=== PATIENT | male | born 2000 | race African-American/Black ===

== ENCOUNTER 2020-05-07 19:11 | Emergency (ER) | payer MEDICAID ==
[~2020-05-07] VITALS: Ht 177.8 cm; Wt 59.0 kg
[2020-05-07 20:45] LABS: BASOPHILS % 0.9 % (0.0-2.0); EOSINOPHILS % 1.4 % (0.0-5.0); HEMATOCRIT. 44.7 % (42.0-52.0); HEMOGLOBIN. 14.8 g/dL (14.0-18.0); LYMPHOCYTES % 18.3 % (20.0-50.0); MEAN CORPUSCULAR HEMOGLOBIN 26.6 pg (28.0-32.0); MEAN CORPUSCULAR VOLUME 80.5 fL (80.0-94.0); MEAN PLATELET VOLUME 7.3 fl (7.4-10.4); MONOCYTES % 9.3 % (2.0-8.0); NEUTROPHILS % 70.1 % (40.0-76.0); PLATELET 208 x1000/uL (130-400); RED BLOOD CELL COUNT 5.55 mill/uL (4.7-6.1); RED CELL DISTRIBUTION WIDTH 13.5 % (11.6-14.6)
[2020-05-07 20:49] LABS: CHLORIDE 107 mEq/L (98-107)
[2020-05-07 20:51] LABS: CLARITY URINE CLOUDY (CLEAR); COLOR URINE DK YELLOW (YELLOW); INR 1.2; KETONES URINE 1+ (NEGATIVE); LEUKOCYTE ESTERASE URINE NEGATIVE (NEGATIVE); NITRITE URINE NEGATIVE (NEGATIVE); OCCULT BLOOD URINE 3+ (NEGATIVE); PROTEIN URINE 1+ (NEGATIVE); PROTHROMBIN TIME 12.6 sec (9.6-11.0); SPECIFIC GRAVITY URINE 1.035 (1.005-1.030)
[2020-05-07] MEDS ORDERED: IBUPROFEN 800MG TABLET PO ONE (21:15)
[2020-05-07 21:40] VITALS: BP 114/73
== END 2020-05-07 21:41 | disposition home or self-care (01) ==
LOC: ER 19:11
DX: N20.1 Calculus of ureter (principal)
CPT/HCPCS: 36415; 74176; 80053; 81003; 85025; 93005; 99285